=== PATIENT | female | born 1945 | race Caucasian/White ===

== ENCOUNTER 2019-02-04 09:20 | Inpatient (IN) | payer MEDICARE ==
[~2019-02-04] VITALS: Ht 167.6 cm; Wt 73.0 kg
[2019-02-04 10:22] LABS: BASOPHILS % (AUTO) 0.1 % (0-1); EOSINOPHILS % (AUTO) 0 % (0-6); HEMATOCRIT 46.3 % (35.0-45.0); LYMPHOCYTES # (AUTO) 0.4 X10'3 (1.1-4.8); LYMPHOCYTES % (AUTO) 10.2 % (21-51); MEAN CORPUSCULAR HEMOGLOBIN 33.5 PG (27.0-31.0); MEAN CORPUSCULAR HGB CONC 34.5 g/dL (33.0-36.5); MEAN CORPUSCULAR VOLUME 97.1 FL (78-98); MEAN PLATELET VOLUME 8.6 FL (7.4-10.4); MONOCYTES # (AUTO) 0.4 X10'3 (0-0.9); MONOCYTES % (AUTO) 10.1 % (2-12); NEUTROPHILS # (AUTO) 2.8 X10'3 (1.8-7.7); NEUTROPHILS % (AUTO) 79.6 % (42-75); PLATELET COUNT 158 X10'3 (140-440); RED BLOOD COUNT 4.77 X10'6 (4.20-5.60); RED CELL DISTRIBUTION WIDTH 13.7 % (11.5-14.5); WHITE BLOOD COUNT 3.5 X10'3 (4.5-11.0)
[2019-02-04 10:37] LABS: ALANINE AMINOTRANSFERASE 12 U/L (12-78); ALBUMIN 3.8 G/DL (3.4-5.0); ALBUMIN/GLOBULIN RATIO 0.8 (1.1-1.5); ALKALINE PHOSPHATASE 74 IU/L (46-116); ANION GAP 8 (8-16); ASPARTATE AMINO TRANSFERASE 18 U/L (10-37); BILIRUBIN,TOTAL 1.3 MG/DL (0.1-1.0); BLOOD UREA NITROGEN 47 MG/DL (7-18); BUN/CREATININE RATIO 25.1 (6.6-38.0); CALCIUM 10.3 MG/DL (8.5-10.1); CHLORIDE 100 MMOL/L (99-107); CREATININE 1.87 MG/DL (0.40-0.90); GLUCOSE 140 MG/DL (70-104); PARTIAL THROMBOPLASTIN TIME 25 SECONDS (22-32); POTASSIUM 3.5 MMOL/L (3.5-5.1); SODIUM 141 MMOL/L (135-145); TOTAL CARBON DIOXIDE 32.9 MMOL/L (24-32); TOTAL PROTEIN 8.4 G/DL (6.4-8.2); eGFR 26 ML/MIN
[2019-02-04] MEDS ORDERED: normal saline 1000ML IV soln IVB ONE (11:05)
[2019-02-04] MEDS ORDERED: OMEG-42 PO (12:08)
[2019-02-04] MEDS ORDERED: CARB1TAB23 PO ×3 (12:08)
[2019-02-04] MEDS ORDERED: ALBU8.5H8 INH (12:08)
[2019-02-04] MEDS ORDERED: ENTA200T23 PO (12:08)
[2019-02-04] MEDS ORDERED: MULT-1141 PO (12:08)
[2019-02-04] MEDS ORDERED: CALC600T12 PO (12:08)
[2019-02-04] MEDS ORDERED: POLY119P28 PO (12:08)
[2019-02-04] MEDS ORDERED: magnesium 2GM in 50ml NS 50 ML IV PRN (12:10)
[2019-02-04] MEDS ORDERED: magnesium 4gm in 100ml NS 100 ML IV PRN (12:10)
[2019-02-04] MEDS ORDERED: ondansetron/PF 4mg/2ml inj IV PRN (12:10)
[2019-02-04] MEDS ORDERED: morphine 2 MG/ML inj. syringe IV PRN ×2 (12:10)
[2019-02-04] MEDS ORDERED: HYDROcodone/acetaminophen 5mg/325mg tablet PO PRN (12:10)
[2019-02-04] MEDS ORDERED: mag hydrox/Alum hydrox/simeth 30ml oral suspension PO PRN (12:10)
[2019-02-04] MEDS ORDERED: magnesium Cl slow-release 64mg tablet PO PRN (12:10)
[2019-02-04] MEDS ORDERED: acetaminophen 325mg tablet PO PRN ×2 (12:10)
[2019-02-04] MEDS ORDERED: potassium Cl 20 mEq SR tablet PO PRN ×2 (12:10)
[2019-02-04] MEDS ORDERED: HYDROcodone/acetaminophen 10/325mg tab PO PRN (12:10)
[2019-02-04] MEDS ORDERED: potassium CL 10mEq/100ml bag 100 ML IV PRN (12:10)
[2019-02-04] MEDS ORDERED: MONT10TA21 PO (12:44)
[2019-02-04] MEDS ORDERED: ALBU18HF2 PO (12:44)
[2019-02-04] MEDS ORDERED: LISI2.5T89 PO (12:44)
[2019-02-04] MEDS ORDERED: [UNRECOGNIZED DRUG - CODE] PO (12:44)
[2019-02-04] MEDS ORDERED: SPIR25TA5 PO (12:44)
[2019-02-04] MEDS ORDERED: SERT50TA10 PO (12:44)
--- NOTE | 2019-02-04 13:15 | NUR ---
Report received from ED RNJen
[2019-02-04] MEDS ORDERED: albuterol 2.5 MG/3 ML nebule NEB PRN (13:40)
--- NOTE | 2019-02-04 13:45 | NUR ---
Pt arrived to room 344A from ED
[2019-02-04 14:00] VITALS: BP 123/63
--- NOTE | 2019-02-04 14:00 | NUR ---
Per Dr Jennifer romo to non-admin PO meds while Dr Mann is determining POC ie surgery or not surgery.
[2019-02-04] MEDS: normal saline 1000ml 1,000 ML IV SCH ×2 (14:15→22:09)
[2019-02-04 15:10] LABS: CLARITY,URINE SLIGHTLY CLOUDY (Clear); COLOR,URINE AMBER (Yellow); GLUCOSE, URINE NEGATIVE (Neg); KETONES,URINE TRACE mg/dl (Neg); LEUKOCYTE ESTERASE ,URINE NEGATIVE (Neg); NITRITES, URINE NEGATIVE (Neg); OCCULT BLOOD,URINE NEGATIVE (Neg); PH,URINE 5.5 (4.8-8.0); PROTEIN,URINE 30 mg/dl (Neg); UA COLLECTION TYPE NON-SPECIFIED; UROBILINOGEN,URINE 0.2 E.U/dL (0.2-1.0)
[2019-02-04 15:19] LABS: MUCUS STRANDS FEW /LPF (Neg)
[2019-02-04 15:20] LABS: BACTERIA,URINE 1+ /HPF (Neg); RBC,URINE 0-2 /HPF (0-2); SQUAMOUS EPITHELIAL CELL,UR FEW /LPF (FEW)
[2019-02-04] MEDS: carbidoba-levodopa 25-100mg tablet PO SCH ×2 (16:00→23:41)
--- NOTE | 2019-02-04 16:15 | NUR ---
Pt returned from CT scan
[2019-02-04] MEDS ORDERED: FLU VACC QS2019-20 36MOS UP/PF 60 MCG/0.5 ML SYRINGE IMVAC ONE (17:00)
[2019-02-04 18:00] VITALS: BP 90/55
--- NOTE | 2019-02-04 18:10 | NUR ---
Problems reprioritized. Patient report given, questions answered & plan of care reviewed with SIERRA Kendall.
--- NOTE | 2019-02-04 18:15 | NUR ---
Patient in room JC 344. I have received report from Elizabeth ESQUIVEL and had the opportunity to ask questions and assume patient care.
[2019-02-04] MEDS ORDERED: normal saline 1000ml 1,000 ML IVB ONE (19:17)
--- NOTE | 2019-02-04 19:22 | NUR ---
Patient's last lactic was 2.3, up from the previous 2.1. Called MD and received new order to bolus patient 1000cc of NS.
[2019-02-04] MEDS: docusate sod 100mg capsule PO SCH (20:00)
[2019-02-04] MEDS: heparin, porcine 5000 units/ml vial SQ SCH (20:11)
[2019-02-04] MEDS: montelukast 10mg tablet PO SCH (20:24)
[2019-02-04] MEDS: amantadine 100 MG capsule PO SCH (20:24)
[2019-02-04] MEDS ORDERED: temazepam 15mg capsule PO PRN (21:00)
[2019-02-04 23:40] VITALS: BP 107/58
[2019-02-04 23:49] VITALS: BP 107/58
[2019-02-04 23:50] VITALS: BP 93/57
[2019-02-05] VITALS (14 sets, daily range): BP systolic 79–149; BP diastolic 45–126
[2019-02-05] MEDS: normal saline 1000ml 1,000 ML IV SCH ×2 (01:35→18:09)
[2019-02-05 05:08] LABS: BASOPHILS % (AUTO) 0.1 % (0-1); EOSINOPHILS % (AUTO) 0 % (0-6); HEMOGLOBIN 14.3 g/dl (12.0-16.0); LYMPHOCYTES # (AUTO) 0.6 X10'3 (1.1-4.8); LYMPHOCYTES % (AUTO) 10.3 % (21-51); MEAN CORPUSCULAR HEMOGLOBIN 33.7 PG (27.0-31.0); MEAN CORPUSCULAR VOLUME 96.3 FL (78-98); MEAN PLATELET VOLUME 9.2 FL (7.4-10.4); MONOCYTES # (AUTO) 0.7 X10'3 (0-0.9); MONOCYTES % (AUTO) 13.3 % (2-12); NEUTROPHILS # (AUTO) 4.3 X10'3 (1.8-7.7); NEUTROPHILS % (AUTO) 76.3 % (42-75); PLATELET COUNT 140 X10'3 (140-440); RED BLOOD COUNT 4.25 X10'6 (4.20-5.60); RED CELL DISTRIBUTION WIDTH 13.6 % (11.5-14.5); WHITE BLOOD COUNT 5.6 X10'3 (4.5-11.0)
--- NOTE | 2019-02-05 05:10 | NUR ---
Patient was bladder scanned around 0400 for a total of 600cc. Patient then requested to use bed joseph again before MD called and voided out 400cc in bed joseph and around 100cc incontinent that went on the bedding underneath.
[2019-02-05 05:24] LABS: ANION GAP 10 (8-16); BLOOD UREA NITROGEN 52 MG/DL (7-18); BUN/CREATININE RATIO 30.2 (6.6-38.0); CALCIUM 9.2 MG/DL (8.5-10.1); CHLORIDE 104 MMOL/L (99-107); CREATININE 1.72 MG/DL (0.40-0.90); GLUCOSE 129 MG/DL (70-104); MAGNESIUM 2.2 MG/DL (1.5-2.4); SODIUM 146 MMOL/L (135-145); eGFR 29 ML/MIN
--- NOTE | 2019-02-05 07:00 | NUR ---
Problems reprioritized. Patient report given, questions answered & plan of care reviewed with Lashanda ESQUIVEL.
[2019-02-05] MEDS: docusate sod 100mg capsule PO SCH ×2 (08:00→20:00)
[2019-02-05] MEDS: K and/or MAG REPLACEMENT MC SCH (08:00)
[2019-02-05] MEDS: lisinopril 2.5mg tablet PO SCH (08:00)
[2019-02-05] MEDS: spironolactone 25 MG tablet PO SCH (08:00)
[2019-02-05] MEDS: carbidoba-levodopa 25-100mg tablet PO SCH ×2 (08:00→16:00)
[2019-02-05] MEDS: sertraline 50mg tablet PO SCH (08:00)
[2019-02-05] MEDS: amantadine 100 MG capsule PO SCH ×3 (08:00→20:14)
[2019-02-05] MEDS: heparin, porcine 5000 units/ml vial SQ SCH (08:05)
[2019-02-05] MEDS ORDERED: potassium Cl 40MEQ/NS 500ml 500 ML IV ONE ×2 (09:15→14:54)
[2019-02-05] MEDS: potassium CL 10mEq/100ml bag 100 ML IV PRN ×4 (09:21→13:22)
[2019-02-05] MEDS: diatr meglu/diatrizoate 30ml oral sol.-(3 dose) bottle PO SCH ×3 (10:04→15:42)
--- NOTE | 2019-02-05 11:00 | NUR ---
Dr. Craig aware patient did not receive PO meds. No new orders.
[2019-02-05] MEDS ORDERED: diatr meglu/diatrizoate 30ml oral sol.-(3 dose) bottle PO SCH ×2 (12:00)
--- NOTE | 2019-02-05 12:53 | NUR ---
Patient in room CJ 344. I have received report from Faiza and had the opportunity to ask questions and assume patient care.
[2019-02-05 15:45] LABS: PLATELET ESTIMATE NORMAL; TOTAL CELLS COUNTED 100
[2019-02-05 15:46] LABS: TOXIC GRANULATION 4+
[2019-02-05 15:47] LABS: SMUDGE CELLS FEW
--- NOTE | 2019-02-05 15:50 | NUR ---
Pt took Gastrografin as directed and went off to CT. She was alert and oriented. verbally confirmed that she was in no pain and did not feel nauseous. Stopped PRN IV potassium and will continue when pt returns.
--- NOTE | 2019-02-05 16:11 | NUR ---
Pt came back from CT at 161. She was alert and oriented. No change in status coming back.
--- NOTE | 2019-02-05 17:00 | NUR ---
Patient denied N/V and c/o abd pain this shift. At this time, patient is now c/o N/V and had 450 ml of emesis. Patient NG canister so far this shift 50ml. Flushed patient's NG with 45ml of water and now having more return of brown gastric drainage to canister.
[2019-02-05] MEDS ORDERED: ringers solution, lacted 1,000 ML IV SCH (17:48)
[2019-02-05] MEDS ORDERED: proCHLORperazine 10 MG/2 ml inj IV PRN (17:50)
[2019-02-05] MEDS ORDERED: ondansetron/PF 4mg/2ml inj IV PRN (17:50)
[2019-02-05] MEDS ORDERED: morphine 4 MG/ML inj SYRINge IV PRN ×2 (17:50)
[2019-02-05] MEDS ORDERED: meperidine/PF 25mg/ml syringe IV PRN ×3 (17:50)
--- NOTE | 2019-02-05 18:08 | NUR ---
received call from telesales consultant that patient HR was "in the 120's." Went to assess patient and patient lying in bed with eyes closed, respirations even and unlabored. Called tele monitor room and is now at 92. Will continue to monitor.
--- NOTE | 2019-02-05 18:33 | NUR ---
Patient in room CJ 344. I have received report from Lashanda ESQUIVEL and Lio student nurse and had the opportunity to ask questions and assume patient care.
--- NOTE | 2019-02-05 18:44 | NUR ---
Problems reprioritized. Patient report given, questions answered & plan of care reviewed with ARIELLE.
[2019-02-05 19:57] LABS: ALANINE AMINOTRANSFERASE 19 U/L (12-78); ALBUMIN 3.3 G/DL (3.4-5.0); ALBUMIN/GLOBULIN RATIO 0.7 (1.1-1.5); ALKALINE PHOSPHATASE 61 IU/L (46-116); ANION GAP 7 (8-16); ASPARTATE AMINO TRANSFERASE 16 U/L (10-37); BILIRUBIN,TOTAL 0.8 MG/DL (0.1-1.0); BLOOD UREA NITROGEN 58 MG/DL (7-18); BUN/CREATININE RATIO 35.6 (6.6-38.0); CHLORIDE 104 MMOL/L (99-107); CREATININE 1.63 MG/DL (0.40-0.90); GLUCOSE 128 MG/DL (70-104); POTASSIUM 3.7 MMOL/L (3.5-5.1); SODIUM 145 MMOL/L (135-145); TOTAL CARBON DIOXIDE 34.5 MMOL/L (24-32); eGFR 31 ML/MIN
[2019-02-05] MEDS: montelukast 10mg tablet PO SCH (20:14)
--- NOTE | 2019-02-05 20:34 | NUR ---
Patient has just been picked up to go down to surgery. At this time, patient is in no distress.
[2019-02-05] MEDS ORDERED: ondansetron/PF 4mg/2ml inj ONE (20:50)
[2019-02-05] MEDS ORDERED: dexamethasone sod phosphate 10mg/ml inj ONE (20:50)
[2019-02-05] MEDS ORDERED: neostigmine methylsulfate 1 MG/ML 10ml vial ONE (20:50)
[2019-02-05] MEDS ORDERED: desflurane 240ml liquid inh. IH ONE (20:50)
[2019-02-05] MEDS ORDERED: glycopyrrolate 0.2mg/ml inj ONE (20:50)
[2019-02-05] MEDS ORDERED: fentaNYL /PF 50mcg/ml 5ml ampule ONE (21:02)
[2019-02-05] MEDS ORDERED: midazolam 2 mg/2 ml injection ONE (21:02)
[2019-02-05] MEDS ORDERED: etomidate 2mg/ml inj. ONE (21:07)
[2019-02-05] MEDS ORDERED: rocuronium 10mg/ml inj IV ONE (21:25)
[2019-02-05] MEDS ORDERED: gentamicin 40 MG/1 ML inj ONE (21:27)
[2019-02-05] MEDS ORDERED: clindamycin phosphate 150mg/ml inj. ONE (21:27)
[2019-02-05] MEDS ORDERED: sugammadex 200mg/2ml injection IV ONE (21:47)
--- NOTE | 2019-02-05 22:03 | NUR ---
Received from OR via , accompanied by Anesthesiologist TRIP and report given by Anesthesiolgist. AWAKENS EASILY IN NO RESP DISTRESS SKIN WARM AND DRY HOB ELEVATED, ABD SOFT DSG DI, SAMS SECURE WITH CLEAR YELLOW URINE. SCDS ON.
--- NOTE | 2019-02-05 22:53 | NUR ---
Report called to receiving nurse. Transferred via BED Belongings . Special Issues communicated to receiving nurse.AWAKE NO CO PAIN, DSG DI, ABD SOFT NG WITH GREEN FLUID SMALL AMT, SCDS CONT, SAMS WITH QS CLEAR YELLOW URINE, PT GETS CONFUSED WHEN AWAKENED, PULLS AT SAMS, SEEMS BETTER AFTER BEING REORIENTED, BUT THEN GOES BACK TO SAME BEHAVIOR AFTER SLEEP. AT BS, TO ROOM 344 ON TELE. AND CONT PULSE OX.
[2019-02-05] MEDS: metroNIDAZOLE-Flagyl 500mg/NS 100 ML IV SCH (23:53)
[2019-02-06] VITALS (12 sets, daily range): BP systolic 114–146; BP diastolic 66–91
--- NOTE | 2019-02-06 03:36 | NUR ---
PUBLIC HEALTH AIDE just came and told me that pt. has just pulled out her NG tube. When I asked pt. if she knew what she had done she stated, " yes I do and I don't care, that doctor should not of lied to me". When asked what she was talking about, pt. said "he said i would be able to have water and ice chips".Explained to patient that she is still NPO status, and that she has been allowed oral swabs to moisten her mouth, and pt. stated "I want that nurse from yesterday, he was really nice". has been in the room with her this whole time and he stated " I should turn you over and spank your butt for being this way". Informed charge nurse of incident and she stated that it could be addressed in the day time. Total 0f 240 dark green bile to drainage cannister. Pt. appeared to be in no pain or distress at this time. Advised them both to go back to sleep.
[2019-02-06 05:18] LABS: BASOPHILS % (AUTO) 0 % (0-1); EOSINOPHILS % (AUTO) 0.1 % (0-6); HEMATOCRIT 41.7 % (35.0-45.0); HEMOGLOBIN 14.5 g/dl (12.0-16.0); LYMPHOCYTES # (AUTO) 0.5 X10'3 (1.1-4.8); LYMPHOCYTES % (AUTO) 9.8 % (21-51); MEAN CORPUSCULAR HEMOGLOBIN 33.5 PG (27.0-31.0); MEAN CORPUSCULAR HGB CONC 34.6 g/dL (33.0-36.5); MEAN CORPUSCULAR VOLUME 96.8 FL (78-98); MEAN PLATELET VOLUME 9.9 FL (7.4-10.4); MONOCYTES # (AUTO) 0.7 X10'3 (0-0.9); MONOCYTES % (AUTO) 13.7 % (2-12); NEUTROPHILS # (AUTO) 3.7 X10'3 (1.8-7.7); NEUTROPHILS % (AUTO) 76.4 % (42-75); PLATELET COUNT 143 X10'3 (140-440); RED BLOOD COUNT 4.31 X10'6 (4.20-5.60); RED CELL DISTRIBUTION WIDTH 13.7 % (11.5-14.5); WHITE BLOOD COUNT 4.9 X10'3 (4.5-11.0)
[2019-02-06] MEDS: normal saline 1000ml 1,000 ML IV SCH (05:27)
[2019-02-06 05:28] LABS: ALBUMIN 2.8 G/DL (3.4-5.0); ANION GAP 9 (8-16); BLOOD UREA NITROGEN 53 MG/DL (7-18); BUN/CREATININE RATIO 37.1 (6.6-38.0); CHLORIDE 108 MMOL/L (99-107); CREATININE 1.43 MG/DL (0.40-0.90); GLUCOSE 139 MG/DL (70-104); MAGNESIUM 2.3 MG/DL (1.5-2.4); POTASSIUM 3.5 MMOL/L (3.5-5.1); SODIUM 151 MMOL/L (135-145); TOTAL CARBON DIOXIDE 34.4 MMOL/L (24-32); eGFR 36 ML/MIN
--- NOTE | 2019-02-06 06:11 | NUR ---
5Problems reprioritized. Patient report given, questions answered & plan of care reviewed with Jesus ESQUIVEL. Patient is still seelping soundly with next to her in recliner. No c/o nausea or any emesis since NG pulled out at 0330..
--- NOTE | 2019-02-06 06:42 | NUR ---
Patient in room CJ 344. I have received report from Faiza ESQUIVEL and had the opportunity to ask questions and assume patient care.
[2019-02-06] MEDS: carbidoba-levodopa 25-100mg tablet PO SCH ×4 (08:00→23:22)
[2019-02-06] MEDS: K and/or MAG REPLACEMENT MC SCH (08:00)
[2019-02-06] MEDS ORDERED: levoFLOXACIN-Levaquin 750MG/D5 150 ML IV SCH (08:00)
[2019-02-06] MEDS: docusate sod 100mg capsule PO SCH ×2 (08:00→20:00)
[2019-02-06] MEDS: spironolactone 25 MG tablet PO SCH (08:00)
[2019-02-06] MEDS: amantadine 100 MG capsule PO SCH ×3 (08:00→21:00)
[2019-02-06] MEDS: sertraline 50mg tablet PO SCH ×2 (08:00→13:44)
[2019-02-06] MEDS: lisinopril 2.5mg tablet PO SCH (08:00)
--- NOTE | 2019-02-06 08:17 | NUR ---
Patient has been grumpy today, at bedside. Initially she won't let me check her blood sugar unless I gave her ice chips. Ice chips given. Blood sugar checked, it was 128 mg/dl. Patient knows where she is at but appears confused also at times. Patient kept saying "My nurse last night was Joseph!" I told patient that her nurse last night was a female and her name was Faiza.
[2019-02-06 08:23] LABS: LARGE PLATELETS FEW; PLATELET ESTIMATE NORMAL; SMUDGE CELLS FEW; TOTAL CELLS COUNTED 100
[2019-02-06] MEDS: metroNIDAZOLE-Flagyl 500mg/NS 100 ML IV SCH ×3 (08:28→23:23)
[2019-02-06] MEDS: dextrose 5%-water 1,000 ML IV SCH ×2 (11:18→21:03)
--- NOTE | 2019-02-06 13:02 | NUR ---
Notified Dr. Craig about patient's oral meds has not been given due to NPO status and that there was no nausea or vomiting since NGT was pulled out by patient. Per Dr. Craig, we can given her antiparkinson's meds and Zoloft
--- NOTE | 2019-02-06 14:25 | NUR ---
Dr. Mann made rounds, I let him know about patient pulled out her NGT tube early am
--- NOTE | 2019-02-06 18:30 | NUR ---
Patient in room CJ 347. I have received report from Jesus ESQUIVEL and had the opportunity to ask questions and assume patient care.
--- NOTE | 2019-02-06 18:37 | NUR ---
Problems reprioritized. Patient report given, questions answered & plan of care reviewed with Faiza ESQUIVEL.
[2019-02-06] MEDS: lactobacillus rhamnosus 10,000 MMU CELLS/CAPSULE PO SCH (20:00)
[2019-02-06] MEDS ORDERED: LORazepam 2 mg/ml vial IV PRN (20:45)
[2019-02-06] MEDS: montelukast 10mg tablet PO SCH (20:49)
--- NOTE | 2019-02-06 21:00 | NUR ---
Patient is on tele and being monitored. Report received of elevated HR since change of shift. Patient has no other symptoms apart from slight pain in chest and abdomen. Patient is not very specific when being questioned, and states that she appears to be having more anxiety. Patient has had recent abdominal surgery and dressing has minimal outlined drainage. Called MD and received order for ativan 0.25mg IV q6hr for moderate anxiety.
--- NOTE | 2019-02-06 22:00 | NUR ---
Patient is now sleeping with in recliner at the bedside. Report from tele that HR has been trending down. Will continue to monitor.
--- NOTE | 2019-02-06 22:45 | NUR ---
Received call that patients' HR has elevated again and also rhythm fluctuating between SR and A fib. Call out to MD again. Addendum: 02/07/19 at 0333 by Faiza Herrera RN This was around 2330, not 2245.
--- NOTE | 2019-02-06 23:30 | NUR ---
Received orders for 1 x dose metoprolol 12.5mg, EKG and to transfer patient to PCU.
[2019-02-07] MEDS ORDERED: metoprolol tartrate 12.5mg (1/2 tablet) PO STA (00:01)
[2019-02-07] MEDS ORDERED: metoprolol tartrate 1mg/ml inj IV PRN (00:05)
--- NOTE | 2019-02-07 00:44 | NUR ---
I have received report from SIERRA Dwyer on surgical unit and had the opportunity to ask questions. Awaiting patient arrival to 3023A.
--- NOTE | 2019-02-07 01:15 | NUR ---
Following telephone report to DUMPSTER DRIVERSIERRA Avitia,patient was transferred over to PCU via bed, along with and all their belongings. understands plan of care for higher acuity monitoring and treatment. Patient not so sure. Pt. in no obvious pain or distress at this time. Jing is now in room 3027N.
--- NOTE | 2019-02-07 01:47 | NUR ---
Patient arrived to floor at 0100 via gurney. All patient belongings transported by surgical staff and . Patient switched from telemetry 4 to mobile 63 with current V-paced rhythm with underlying afib with wide BBB. Patient's oxygen saturation 100% room air. Patient HR varying from 160's to 130's. 5 mL metoprolol IV push (first of three administered). BP 94/54 manual. 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 2 RN skin check performed and observed bruising to bilateral upper extremities secondary to lab draws, dry skin, and non blanchable reddened coccyx with optifoam in place. Will continue to monitor closely. at bedside. Will continue to monitor closely.
[2019-02-07 02:07] LABS: BASOPHILS % (AUTO) 0.1 % (0-1); EOSINOPHILS % (AUTO) 0.8 % (0-6); HEMATOCRIT 40.9 % (35.0-45.0); HEMOGLOBIN 14.1 g/dl (12.0-16.0); LYMPHOCYTES # (AUTO) 0.9 X10'3 (1.1-4.8); LYMPHOCYTES % (AUTO) 15.5 % (21-51); MEAN CORPUSCULAR HEMOGLOBIN 33.5 PG (27.0-31.0); MEAN CORPUSCULAR HGB CONC 34.5 g/dL (33.0-36.5); MEAN CORPUSCULAR VOLUME 97.2 FL (78-98); MEAN PLATELET VOLUME 9.8 FL (7.4-10.4); MONOCYTES % (AUTO) 17.4 % (2-12); NEUTROPHILS # (AUTO) 3.8 X10'3 (1.8-7.7); NEUTROPHILS % (AUTO) 66.2 % (42-75); PLATELET COUNT 154 X10'3 (140-440); RED BLOOD COUNT 4.21 X10'6 (4.20-5.60); RED CELL DISTRIBUTION WIDTH 13.6 % (11.5-14.5); WHITE BLOOD COUNT 5.7 X10'3 (4.5-11.0)
[2019-02-07 02:18] LABS: ALBUMIN 2.6 G/DL (3.4-5.0); ANION GAP 7 (8-16); BLOOD UREA NITROGEN 34 MG/DL (7-18); BUN/CREATININE RATIO 28.6 (6.6-38.0); CALCIUM 9.1 MG/DL (8.5-10.1); CHLORIDE 108 MMOL/L (99-107); CREATININE 1.19 MG/DL (0.40-0.90); GLUCOSE 135 MG/DL (70-104); MAGNESIUM 2.1 MG/DL (1.5-2.4); POTASSIUM 3.1 MMOL/L (3.5-5.1); SODIUM 149 MMOL/L (135-145); TOTAL CARBON DIOXIDE 33.8 MMOL/L (24-32); TROPONIN I 0.04 NG/ML (0.0-0.05); eGFR 44 ML/MIN
--- NOTE | 2019-02-07 02:29 | NUR ---
Patient HR sustaining in 80's and converted at 0155 to NSR and is AV paced.
[2019-02-07 02:40] LABS: TOTAL CELLS COUNTED 100
[2019-02-07 02:41] LABS: LARGE PLATELETS FEW; PLATELET ESTIMATE NORMAL; TOXIC GRANULATION 1+
[2019-02-07 03:00] VITALS: BP 95/56
[2019-02-07] MEDS: potassium CL 10mEq/100ml bag 100 ML IV PRN ×3 (05:19→10:00)
[2019-02-07] MEDS: dextrose 5%-water 1,000 ML IV SCH (05:55)
[2019-02-07 06:00] VITALS: BP 124/59
--- NOTE | 2019-02-07 06:12 | NUR ---
Problems reprioritized. Patient report given, questions answered & plan of care reviewed with SIERRA Huggins.
--- NOTE | 2019-02-07 06:15 | NUR ---
Patient in room PCU 3023. I have received report from SIERRA Angulo and had the opportunity to ask questions and assume patient care. Patient is currently resting in bed, bed locked and low, call light in reach, no acute distress, patient is pulling at lines, and trying to get up, provided education to patient on necessity of lines. at bedside, he is trying to keep her from pulling at things, will continue to monitor.
[2019-02-07] MEDS: metoprolol tartrate 25mg tablet PO SCH ×2 (08:00→20:00)
[2019-02-07] MEDS: docusate sod 100mg capsule PO SCH ×2 (08:00→20:00)
[2019-02-07] MEDS: lactobacillus rhamnosus 10,000 MMU CELLS/CAPSULE PO SCH ×2 (08:00→20:00)
--- NOTE | 2019-02-07 08:21 | NUR ---
PAGER ID: [phone] MESSAGE: SIERRA Huggins, ext [phone], [phone], Raven, patient still has no bowel sounds, do you want me to hold her PO meds?
[2019-02-07] MEDS: heparin, porcine 5000 units/ml vial SQ SCH ×2 (08:44→21:19)
[2019-02-07] MEDS: K and/or MAG REPLACEMENT MC SCH (08:45)
[2019-02-07] MEDS: carbidoba-levodopa 25-100mg tablet PO SCH ×3 (08:45→17:15)
[2019-02-07] MEDS: metroNIDAZOLE-Flagyl 500mg/NS 100 ML IV SCH ×2 (08:45→17:15)
[2019-02-07] MEDS: sertraline 50mg tablet PO SCH (08:48)
[2019-02-07] MEDS: amantadine 100 MG capsule PO SCH ×3 (10:00→21:00)
[2019-02-07 11:00] VITALS: BP 144/81
[2019-02-07] MEDS: Potassium Cl inj 20 MEQ in dextrose 5%-water 990 ML IV SCH ×2 (13:46→21:16)
[2019-02-07] MEDS ORDERED: methylnaltrexone br 12mg/0.6ml inj***SubQ only SQ ONE (14:05)
--- NOTE | 2019-02-07 14:27 | NUR ---
Initial: Pt admit w/ SBO s/p ex lap lysis of adhesive band causing complete SBO involving distal ileum per MD note. Advanced to ice chips/popsicles 02/06 post-op per MD/SP. SP to re-evaluate once diet advanced further per SP note. LBM 02/02 per EMR and pt has hx chronic constipation as well. CURTIS d/w RN regarding opioid antagonist and promotility agent per MD approval post-op since receiving morphine and given GI hx. Receiving electrolyte replacement per protocol. Will continue to monitor for PO diet advancement and ONS needs post-op. Rec: 1. advance diet per MD/SP to heart healthy/low-residue 2. monitor for ONS needs once diet advances 3. opioid antagonist and/or promotility agent per MD approval on morphine post-op 4. weekly wts Addendum: 02/07/19 at [address] Amended: Links added.
--- NOTE | 2019-02-07 17:32 | NUR ---
PAGER ID: [phone] MESSAGE: SIERRA Huggins,ext [phone], [id number], Carbajal, attempted to give patient her afternoon Parkinson's meds and she was unable to move them to the back of her mouth and swallow them. she was still able to swallow the water
--- NOTE | 2019-02-07 18:48 | NUR ---
Problems reprioritized. Patient report given, questions answered & plan of care reviewed with SIERRA Rodas. Patient sleeping soundly at time of transfer to ACCE but arousable. Stable at shift change.
[2019-02-07 20:00] VITALS: BP 145/85
[2019-02-07] MEDS: montelukast 10mg tablet PO SCH (21:00)
--- NOTE | 2019-02-07 22:13 | NUR ---
Dr. Hudson notified to for clarification of PRN metoprolol 5mg IVP dose. new order is as follow ; PRN metoprolol 5 mg IVP q 15 min up to 3 dose for Heart rate greater than 140
[2019-02-07 23:56] VITALS: BP 132/75
[2019-02-08] VITALS (8 sets, daily range): BP systolic 68–150; BP diastolic 49–88
[2019-02-08] MEDS: metroNIDAZOLE-Flagyl 500mg/NS 100 ML IV SCH ×4 (01:05→23:47)
[2019-02-08] MEDS: Potassium Cl inj 20 MEQ in dextrose 5%-water 990 ML IV SCH ×2 (01:06→19:04)
[2019-02-08 02:21] LABS: BASOPHILS % (AUTO) 0 % (0-1); EOSINOPHILS # (AUTO) 0.1 X10'3 (0-0.9); HEMATOCRIT 38.3 % (35.0-45.0); HEMOGLOBIN 13.1 g/dl (12.0-16.0); LYMPHOCYTES # (AUTO) 1.2 X10'3 (1.1-4.8); MEAN CORPUSCULAR HEMOGLOBIN 33.2 PG (27.0-31.0); MEAN CORPUSCULAR HGB CONC 34.1 g/dL (33.0-36.5); MEAN CORPUSCULAR VOLUME 97.4 FL (78-98); MEAN PLATELET VOLUME 9.2 FL (7.4-10.4); MONOCYTES # (AUTO) 0.9 X10'3 (0-0.9); NEUTROPHILS # (AUTO) 3.7 X10'3 (1.8-7.7); PLATELET COUNT 114 X10'3 (140-440); RED BLOOD COUNT 3.93 X10'6 (4.20-5.60); RED CELL DISTRIBUTION WIDTH 13.5 % (11.5-14.5); WHITE BLOOD COUNT 5.9 X10'3 (4.5-11.0)
[2019-02-08 02:28] LABS: ALBUMIN 2.4 G/DL (3.4-5.0); ANION GAP 7 (8-16); BLOOD UREA NITROGEN 19 MG/DL (7-18); BUN/CREATININE RATIO 24.7 (6.6-38.0); CALCIUM 8.3 MG/DL (8.5-10.1); CHLORIDE 110 MMOL/L (99-107); CREATININE 0.77 MG/DL (0.40-0.90); GLUCOSE 116 MG/DL (70-104); MAGNESIUM 1.8 MG/DL (1.5-2.4); POTASSIUM 3.1 MMOL/L (3.5-5.1); SODIUM 146 MMOL/L (135-145); TOTAL CARBON DIOXIDE 29.4 MMOL/L (24-32); eGFR 73 ML/MIN
--- NOTE | 2019-02-08 06:25 | NUR ---
Patient in room MED 313. I have received report from SIERRA Rodas and had the opportunity to ask questions and assume patient care.
--- NOTE | 2019-02-08 06:28 | NUR ---
Problems reprioritized. Patient report given,Samina ESQUIVEL questions answered & plan of care reviewed with .Bedside report completed. no distress noted. fall precaution maintained, bed lock and low.call boogie in reach. bed alarm on.
[2019-02-08] MEDS: amantadine 100 MG capsule PO SCH ×3 (08:00→20:27)
[2019-02-08] MEDS: docusate sod 100mg capsule PO SCH ×2 (08:00→20:00)
[2019-02-08] MEDS: K and/or MAG REPLACEMENT MC SCH (08:00)
[2019-02-08] MEDS: carbidoba-levodopa 25-100mg tablet PO SCH ×4 (08:00→23:37)
[2019-02-08] MEDS: sertraline 50mg tablet PO SCH (08:00)
[2019-02-08] MEDS: metoprolol tartrate 25mg tablet PO SCH ×2 (08:00→20:00)
[2019-02-08] MEDS: lactobacillus rhamnosus 10,000 MMU CELLS/CAPSULE PO SCH ×2 (08:00→20:00)
[2019-02-08] MEDS: heparin, porcine 5000 units/ml vial SQ SCH ×2 (08:41→20:00)
[2019-02-08] MEDS: levoFLOXACIN-Levaquin 750MG/D5 150 ML IV SCH (08:41)
[2019-02-08] MEDS ORDERED: magnesium 4gm in 100ml NS 100 ML IV PRN ×2 (10:40→11:00)
[2019-02-08] MEDS ORDERED: potassium Cl 10 mEq/100mL bag IV ONE (10:40)
[2019-02-08] MEDS: potassium CL 10mEq/100ml bag 100 ML IV PRN ×4 (11:17→15:19)
--- NOTE | 2019-02-08 12:20 | NUR ---
page to PT: rm. 313 Jen Carbajal needs to be evaluated by PT before nursing gets her up. thank you. SIERRA Haas Addendum: 02/08/19 at 1538 by Samina Benitez RN spoke with PT and they might not be able to get to her today. pt. needs orthostatic VS. Nursing will attempt to get pt. up.
--- NOTE | 2019-02-08 15:36 | NUR ---
PAGER ID: [phone] MESSAGE: rm 313. pt. Jen Carbajal. orthostatic VS laying, 102/72, HR 90, O2 93% RA. sitting 123/72, HR 92, O2 91%. standing 68/49, HR 97, O2 100. please advise. SIERRA Haas [phone] Addendum: 02/08/19 at 1615 by Samina Benitez RN called back and acknowledged the result. advises caution with moving pt. no new orders at this time.
--- NOTE | 2019-02-08 18:23 | NUR ---
Problems reprioritized. Patient report given, questions answered & plan of care reviewed with SIERRA Faustin.
[2019-02-08 19:12] LABS: BASOPHILS % (AUTO) 0.1 % (0-1); EOSINOPHILS # (AUTO) 0.1 X10'3 (0-0.9); EOSINOPHILS % (AUTO) 1.1 % (0-6); HEMATOCRIT 40.8 % (35.0-45.0); HEMOGLOBIN 13.9 g/dl (12.0-16.0); LYMPHOCYTES % (AUTO) 14.4 % (21-51); MEAN CORPUSCULAR HEMOGLOBIN 33.3 PG (27.0-31.0); MEAN CORPUSCULAR HGB CONC 34.2 g/dL (33.0-36.5); MEAN CORPUSCULAR VOLUME 97.3 FL (78-98); MEAN PLATELET VOLUME 8.5 FL (7.4-10.4); MONOCYTES # (AUTO) 1.1 X10'3 (0-0.9); MONOCYTES % (AUTO) 15.4 % (2-12); PLATELET COUNT 124 X10'3 (140-440); RED BLOOD COUNT 4.19 X10'6 (4.20-5.60); RED CELL DISTRIBUTION WIDTH 13.3 % (11.5-14.5); WHITE BLOOD COUNT 7.3 X10'3 (4.5-11.0)
[2019-02-08 19:34] LABS: ALANINE AMINOTRANSFERASE 28 U/L (12-78); ALBUMIN 2.5 G/DL (3.4-5.0); ALBUMIN/GLOBULIN RATIO 0.7 (1.1-1.5); ALKALINE PHOSPHATASE 52 IU/L (46-116); ANION GAP 6 (8-16); ASPARTATE AMINO TRANSFERASE 32 U/L (10-37); BILIRUBIN,TOTAL 0.5 MG/DL (0.1-1.0); BLOOD UREA NITROGEN 12 MG/DL (7-18); BUN/CREATININE RATIO 13.5 (6.6-38.0); CALCIUM 8.7 MG/DL (8.5-10.1); CHLORIDE 109 MMOL/L (99-107); CREATININE 0.89 MG/DL (0.40-0.90); GLUCOSE 101 MG/DL (70-104); POTASSIUM 3.4 MMOL/L (3.5-5.1); SODIUM 143 MMOL/L (135-145); TOTAL CARBON DIOXIDE 28.4 MMOL/L (24-32); TOTAL PROTEIN 6.3 G/DL (6.4-8.2); eGFR 62 ML/MIN
[2019-02-08] MEDS: montelukast 10mg tablet PO SCH (20:26)
[2019-02-09] MEDS: Potassium Cl inj 20 MEQ in dextrose 5%-water 990 ML IV SCH ×3 (05:25→22:27)
[2019-02-09 05:46] LABS: BASOPHILS % (AUTO) 0.1 % (0-1); EOSINOPHILS # (AUTO) 0.2 X10'3 (0-0.9); EOSINOPHILS % (AUTO) 2.3 % (0-6); HEMATOCRIT 42.4 % (35.0-45.0); HEMOGLOBIN 14.6 g/dl (12.0-16.0); LYMPHOCYTES # (AUTO) 1.2 X10'3 (1.1-4.8); LYMPHOCYTES % (AUTO) 16.1 % (21-51); MEAN CORPUSCULAR HEMOGLOBIN 33.3 PG (27.0-31.0); MEAN CORPUSCULAR HGB CONC 34.6 g/dL (33.0-36.5); MEAN CORPUSCULAR VOLUME 96.3 FL (78-98); MEAN PLATELET VOLUME 8.8 FL (7.4-10.4); MONOCYTES # (AUTO) 1.1 X10'3 (0-0.9); MONOCYTES % (AUTO) 14.1 % (2-12); NEUTROPHILS # (AUTO) 5.2 X10'3 (1.8-7.7); NEUTROPHILS % (AUTO) 67.4 % (42-75); PLATELET COUNT 128 X10'3 (140-440); RED CELL DISTRIBUTION WIDTH 13.6 % (11.5-14.5); WHITE BLOOD COUNT 7.6 X10'3 (4.5-11.0)
[2019-02-09 05:58] LABS: ALBUMIN 2.6 G/DL (3.4-5.0); ANION GAP 9 (8-16); BLOOD UREA NITROGEN 12 MG/DL (7-18); BUN/CREATININE RATIO 15.2 (6.6-38.0); CALCIUM 8.6 MG/DL (8.5-10.1); CHLORIDE 109 MMOL/L (99-107); CREATININE 0.79 MG/DL (0.40-0.90); GLUCOSE 99 MG/DL (70-104); MAGNESIUM 1.5 MG/DL (1.5-2.4); POTASSIUM 3.4 MMOL/L (3.5-5.1); SODIUM 143 MMOL/L (135-145); TOTAL CARBON DIOXIDE 25.3 MMOL/L (24-32); eGFR 71 ML/MIN
[2019-02-09 06:00] VITALS: BP 129/79
--- NOTE | 2019-02-09 06:35 | NUR ---
Gave report to Donna. Answered all the questions.
[2019-02-09 06:38] LABS: TOTAL CELLS COUNTED 100
[2019-02-09 06:39] LABS: PLATELET ESTIMATE DECREASED
--- NOTE | 2019-02-09 07:22 | NUR ---
Patient in room MED 313. I have received report from SIERRA Faustin and had the opportunity to ask questions and assume patient care.
[2019-02-09 08:00] VITALS: BP_SYST 115; BP_SYST 119; BP_SYST 79; BP_DIAS 51; BP_DIAS 67; BP_DIAS 73
[2019-02-09] MEDS: K and/or MAG REPLACEMENT MC SCH (08:00)
[2019-02-09] MEDS ORDERED: methylnaltrexone br 12mg/0.6ml inj***SubQ only SQ SCH (08:00)
[2019-02-09] MEDS: metroNIDAZOLE-Flagyl 500mg/NS 100 ML IV SCH ×2 (08:11→16:31)
[2019-02-09] MEDS: heparin, porcine 5000 units/ml vial SQ SCH ×2 (08:11→21:19)
[2019-02-09] MEDS: potassium CL 10mEq/100ml bag 100 ML IV PRN ×4 (08:43→12:13)
--- NOTE | 2019-02-09 09:26 | NUR ---
DR. GASTELUM WANTS PATIENTS TRANSFERRED TO SURGICAL
[2019-02-09] MEDS: amantadine 100 MG capsule PO SCH ×3 (10:16→21:15)
[2019-02-09] MEDS: docusate sod 100mg capsule PO SCH ×2 (10:19→21:15)
[2019-02-09] MEDS: lactobacillus rhamnosus 10,000 MMU CELLS/CAPSULE PO SCH ×2 (10:19→21:14)
[2019-02-09] MEDS: sertraline 50mg tablet PO SCH (10:21)
[2019-02-09] MEDS: metoprolol tartrate 25mg tablet PO SCH ×2 (10:21→21:34)
[2019-02-09] MEDS: magnesium hydroxide 30ml (MOM) UD suspension PO SCH ×2 (10:22→21:15)
[2019-02-09] MEDS: carbidoba-levodopa 25-100mg tablet PO SCH ×2 (10:45→16:36)
[2019-02-09 11:00] VITALS: BP 110/70
[2019-02-09 14:15] VITALS: BP 104/68
--- NOTE | 2019-02-09 14:26 | NUR ---
Problems reprioritized. Patient report given, questions answered & plan of care reviewed with SIERRA Villa.
--- NOTE | 2019-02-09 14:26 | NUR ---
PAGER ID: [phone] MESSAGE: [id number]. pt. Jen Carbajal. orthostatic vital signs. laying 119/67, HR 86. sitting 115/73, HR 88. standing 79/51, 91. please advise. Ji, SIERRA [phone]
--- NOTE | 2019-02-09 16:48 | NUR ---
phoned to state pt may be discharged home, and pt to f/u w/ Dr. Mann upon discharge. Dr. Rodriguez notified.
--- NOTE | 2019-02-09 17:51 | NUR ---
SPOKE WITH DR GONZALEZ. HE STATES THAT HE WILL DC PT IN THE AM AFTER FC REMOVED TODAY AND STARTED ON A REG DIET.
[2019-02-09 18:00] VITALS: BP 104/55
--- NOTE | 2019-02-09 18:02 | NUR ---
AGREEE WITH PHYSICAL ASSESSMENT DONE ON ACCE UNIT Addendum: 02/09/19 at 1803 by Gianna Betancourt RN Amended: Links added.
--- NOTE | 2019-02-09 19:30 | NUR ---
Patient in room CJ 357B. I have received report from SIERRA Villa and had the opportunity to ask questions and assume patient care. Pt is sleeping with no sign of distress
[2019-02-09 20:00] VITALS: BP_SYST 105; BP_SYST 106; BP_DIAS 62; BP_DIAS 66
[2019-02-09] MEDS: montelukast 10mg tablet PO SCH (21:15)
[2019-02-10] VITALS: BP 105/66
[2019-02-10] MEDS: metroNIDAZOLE-Flagyl 500mg/NS 100 ML IV SCH ×2 (02:04→10:00)
[2019-02-10] MEDS: carbidoba-levodopa 25-100mg tablet PO SCH ×2 (02:05→07:41)
[2019-02-10 05:52] LABS: MAGNESIUM 1.7 MG/DL (1.5-2.4); POTASSIUM 3.8 MMOL/L (3.5-5.1)
--- NOTE | 2019-02-10 06:20 | NUR ---
Problems reprioritized. Patient report given, questions answered & plan of care reviewed with SIERRA Carnes . Pt stable at shift change.
--- NOTE | 2019-02-10 06:56 | NUR ---
Patient in room CJ 357. I have received report from Alberto ESQUIVEL and had the opportunity to ask questions and assume patient care.
[2019-02-10 07:00] VITALS: BP 135/72
[2019-02-10] MEDS: lactobacillus rhamnosus 10,000 MMU CELLS/CAPSULE PO SCH (07:41)
[2019-02-10] MEDS: metoprolol tartrate 25mg tablet PO SCH (07:41)
[2019-02-10] MEDS: amantadine 100 MG capsule PO SCH ×2 (07:41→13:15)
[2019-02-10] MEDS: docusate sod 100mg capsule PO SCH (07:42)
[2019-02-10] MEDS: heparin, porcine 5000 units/ml vial SQ SCH (07:44)
[2019-02-10] MEDS: sertraline 50mg tablet PO SCH (07:45)
[2019-02-10] MEDS: magnesium hydroxide 30ml (MOM) UD suspension PO SCH (07:48)
[2019-02-10] MEDS: levoFLOXACIN-Levaquin 750MG/D5 150 ML IV SCH (07:59)
[2019-02-10] MEDS: K and/or MAG REPLACEMENT MC SCH (08:00)
--- NOTE | 2019-02-10 09:02 | NUR ---
Patient ate her full liquid breakfast, able to tolerate it, no problem noted.
[2019-02-10] MEDS: Potassium Cl inj 20 MEQ in dextrose 5%-water 990 ML IV SCH (10:02)
[2019-02-10 11:00] VITALS: BP 97/61
--- NOTE | 2019-02-10 11:40 | NUR ---
Reassessment: Patient's diet has just been advanced to regular from clear liquid, pending documentation of PO intake. LBM 02/09, pt now receiving routine Relistor and MoM as well as routine Colace. Pt clinically improving per MD notes. Will continue to follow and monitor need for ONS. Rec: 1. consider diet change heart healthy/low-residue; pending f/u BSS since diet advancement 2. monitor for ONS needs 3. opioid antagonist and/or promotility agent per MD approval on morphine post-op 4. weekly wts Addendum: 02/10/19 at [address] Amended: Links added.
[2019-02-10] MEDS ORDERED: METR-159 PO (12:07)
[2019-02-10] MEDS ORDERED: DOCU-148 PO (12:09)
--- NOTE | 2019-02-10 13:30 | NUR ---
Discharge instructions given to patient, patient verbalized understanding of all instructions. Peripheral IV catheter removed, tip intact. New prescription called in to [facility] pharmacy in [place]. Instructed patient to ensure she has all her belongings with her before leaving. Patient awaiting for her to pick her up
== END 2019-02-10 14:20 | disposition home or self-care (01) | DRG 853 ==
LOC: ER 09:21 → ED HOLD 12:09 → SUR 3N 13:32 → PCU 3S 02-07 01:00 → MED 3N 02-07 18:37 → SUR 3N 02-09 14:08
PROVIDERS: ADMIT Internal Medicine; ATTEND Internal Medicine
PROC: 3E02340 Introduction of Influenza Vaccine into Muscle, Percutaneous Approach (ICD-10-PCS; 2019-02-04)
PROC: 0DNB0ZZ Release Ileum, Open Approach (ICD-10-PCS; principal; 2019-02-05 20:50)
DX: A41.9 Sepsis, unspecified organism (principal); N17.0 Acute kidney failure with tubular necrosis; E87.0 Hyperosmolality and hypernatremia; E87.1 Hypo-osmolality and hyponatremia; K56.7 Ileus, unspecified; K56.52 Intestinal adhesions [bands] with complete obstruction; I13.0 Hypertensive heart and chronic kidney disease with heart failure and stage 1 through stage 4 chronic kidney disease, or unspecified chronic kidney disease; I43 Cardiomyopathy in diseases classified elsewhere; I48.91 Unspecified atrial fibrillation; I50.9 Heart failure, unspecified; M81.0 Age-related osteoporosis without current pathological fracture; R29.6 Repeated falls; G20 Parkinson's disease; G35 Multiple sclerosis; I25.10 Atherosclerotic heart disease of native coronary artery without angina pectoris; E86.0 Dehydration; N18.3 Chronic kidney disease, stage 3 (moderate); I36.1 Nonrheumatic tricuspid (valve) insufficiency; E87.6 Hypokalemia; Z88.0 Allergy status to penicillin; Z88.8 Allergy status to other drugs, medicaments and biological substances; Z88.7 Allergy status to serum and vaccine; Z23 Encounter for immunization; I25.2 Old myocardial infarction; Z98.49 Cataract extraction status, unspecified eye; Z95.1 Presence of aortocoronary bypass graft; Z95.0 Presence of cardiac pacemaker; Z90.49 Acquired absence of other specified parts of digestive tract
CPT/HCPCS: 36415; 71045; 74176; 80048; 80053; 81001; 82948; 83605; 83735; 83880; 84132; 84145; 84439; 84443; 84484; 85025; 85610; 85730; 86885; 86900; 86901; 87040; 87070; 87075; 87081; 87088; 87102; 92508; 92616; 93005; 93308; 94760; 96360; 97110; 97112; 97116; 97161; 97530; 97535; 99285; A4215; A4618; A7000; C1758; C9399; G0378; J1100; J1580; J1644; J1956; J2175; J2212; J2250; J2270; J2405; J2710; J3010; J3480; J3490; J7030; J7070; J7120; Q2037; Q9963